=== PATIENT | female | born 1970 | race Caucasian/White ===

== ENCOUNTER 2025-01-22 09:53 | Emergency (ER) | payer MEDICAID, SELFPAY ==
--- NOTE | 2025-01-22 09:45 | RT.EKG_ITS ---
APPROVED REPORT Exam: Resting ECG Reason for Exam: Chest Pain Patient Location: E HR:54 bpm ECG Measurements Heart Rate 54 AXIS NJ 146 P 20 QRSd 89 QRS 75 QT 441 T 50 QTc 417 Conclusion Sinus bradycardia...rate< 60 Consider left ventricular hypertrophy...(S V1+R V5/V6) >3.25mV No Occlusion [facility]
[2025-01-22 09:57] VITALS: BP 123/66; PULSE 63; RESP 20; TEMP 36.4; O2SAT 98
[2025-01-22 10:04] VITALS: BP 123/68; PULSE 68; RESP 20; TEMP 36.4; O2SAT 98
[2025-01-22] MEDS: Albuterol HFA 8 GM 60 PUFF INH IH (10:59)
[2025-01-22] MEDS: predniSONE 20 MG TAB 40 MG PO (10:59)
--- NOTE | 2025-01-22 10:59 | DI.RAD_ITS ---
Exam(s) XR CHEST 2V PA LATERAL EXAM: XR CHEST 2V PA LATERAL CLINICAL HISTORY: shortness of breath TECHNIQUE: 2D digital imaging was performed of the chest. Two images were obtained. PA and lateral views were obtained. COMPARISON: No exams were available for comparison FINDINGS: The nipple shadows are seen bilaterally. MEDIASTINUM: Normal. HEART: Normal. PULMONARY VASCULATURE: Normal. LUNGS: There are no focal consolidating infiltrates present. The lungs are hyperinflated suggesting underlying COPD. PLEURAL SPACE: No pleural effusion or pneumothorax. BONE:Within normal limits for the patient's age. OTHER FINDINGS:Normal. IMPRESSION: No focal consolidating infiltrates. DATA REPOSITORY: RADIATION DOSE DELIVERED:
[2025-01-22 11:08] LABS: COVID-19 PCR Negative (Negative); RSV PCR Negative (Negative)
[2025-01-22 11:23] VITALS: BP 126/82; PULSE 59; RESP 19; TEMP 36.9; O2SAT 95
[2025-01-22 11:46] LABS: Glucose Negative (Negative)
[2025-01-22 12:00] LABS: C & S Indicated? No
--- NOTE | 2025-01-22 15:18 | W.ED.GENAD ---
Discharge Plan Disposition Patient Disposition: Home Condition: Stable Discharge Details Clinical Impression: Bronchitis, Hematuria, Dysuria Primary Care Provider: Adrien Caballero ED Provider: Melissa Powell Home Meds and New Rx's Prescriptions: New prednisone 20 mg tablet 40 mg PO ONCE Qty: 10 0RF doxycycline hyclate 100 mg capsule 100 mg PO BID Qty: 10 0RF Discharge Instructions Instructions: Acute bronchitis, Blood in Urine (Hematuria), Adult ED Additional Instructions: Please follow-up with Dr. Mak, urology regarding the blood in your urine Take the prednisone for the next 5 days to help with your breathing Use the albuterol 2 puffs every 4-6 hours with spacer Take the antibiotics as prescribed Please follow-up with pcp for recheck in 2-3 days And return earlier should you have new or worsening complaints including worsening shortness of breath flank pain, fever, chills Referrals: Adrien Caballero NP [Primary Care Provider, Medicine] Xavi Mak MD [MD CONSULTING PHYSICIAN, Surgery] HPI General Date/Time Provider Initiated Documentation: 01/22/25 10:20. HPI Narrative: This 54-year-old female presents with report of upper respiratory symptoms for the past 2 weeks smokes tobacco on a daily basis diagnosed previously with COPD does use inhalers daily. States she has had increased sputum production states her has also been sick with similar symptoms. She has some pain predominantly with coughing. She denies any hemoptysis. She has any calf pain or swelling or history of PE or deep vein thrombosis. She does also endorse some urinary frequency with oliguira. Related Data Home Medications ?Medication ?Instructions ?Recorded ?Confirmed doxycycline hyclate 100 mg capsule 100 mg PO BID #10 caps 01/22/25 prednisone 20 mg tablet 40 mg (2 x 20 mg) PO ONCE #10 tabs 01/22/25 Previous Rx's ?Medication ?Instructions ?Recorded doxycycline hyclate 100 mg capsule 100 mg PO BID #10 caps 01/22/25 prednisone 20 mg tablet 40 mg (2 x 20 mg) PO ONCE #10 tabs 01/22/25 Allergies Allergy/AdvReac Type Severity Reaction Status Date / Time Penicillins Allergy Intermediate Anaphylaxis Verified 01/22/25 10:51 codeine Allergy Hives Verified 01/22/25 10:51 General Stated Complaint: RespSymp GUERA: 3 Exam Narrative Exam Narrative: Alert and oriented 54-year-old female lungs are clear to auscultation no respiratory distress no abdominal tenderness no visible evidence of trauma cardiac rate rhythm regular, speaking in complete sentences Course Vital Signs Vital signs: Vital Signs Temperature 36.4 C 01/22/25 09:57 Pulse 63 01/22/25 09:57 Respiratory Rate 20 01/22/25 09:57 Blood Pressure 123/66 01/22/25 09:57 Pulse Oximetry 98 01/22/25 09:57 Temperature 36.9 C 01/22/25 11:23 Temperature Source Oral 01/22/25 11:23 Pulse 59 L 01/22/25 11:23 Pulse Rhythm Regular 01/22/25 11:23 Pulse Strength Normal 01/22/25 11:23 Respiratory Rate 19 01/22/25 11:23 Respiratory Effort Non-Labored 01/22/25 11:23 Respiratory Depth Normal 01/22/25 11:23 Respiratory Pattern Normal 01/22/25 11:23 Blood Pressure 126/82 01/22/25 11:23 Blood Pressure Mean 96 01/22/25 11:23 Blood Pressure Position Sitting 01/22/25 11:23 Pulse Oximetry 95 01/22/25 11:23 Oxygen Delivery Method Room Air 01/22/25 11:23 Oxygen Flow Rate 0 01/22/25 11:23 Pain Level 10 01/22/25 09:57 Lab/Test Results Lab/Test Results: Laboratory Tests Range/Units 01/22/25 01/22/25 10:06 11:21 Urine Color (Yellow) Yellow Urine Clarity (Clear) Sl Cloudy Urine pH (5-8) 5.5 Ur Specific [place] (1.005-1.025) 1.025 Urine Protein (Neg-Trace) mg/dL Negative Urine Ketones (Negative) mg/dL Negative Urine Blood (Negative) Small H Urine Nitrite (Negative) Negative Urine Bilirubin (Negative) Negative Urine Urobilinogen (Up to 0.2) mg/dL 0.2 Ur Leukocyte Esterase (Negative) Small H Urine RBC (0-2) HPF 3-5 H Urine WBC (0-5) HPF 5-10 Ur Epithelial Cells (Negative) HPF Many Urine Crystals (Negative) HPF Negative Urine Bacteria (Negative) HPF Few Urine Casts (Negative) LPF Negative Urine Mucus (Negative) Moderate Ur Culture Indicated? No Urine Glucose (Negative) mg/dL Negative COVID-19 Source Nasopharynx SARS-CoV-2 (PCR) (Negative) Negative Influenza Type A (PCR) (Negative) Negative Influenza Type B (PCR) (Negative) Negative RSV (PCR) (Negative) Negative Medical Decision Making 54-year-old female presenting with respiratory complaints and urinary complaints. Results: Chest x-ray per radiology interpretation my review does not show evidence of acute abnormality, urinalysis with red blood cells and no evidence of secondary infection Assessment and plan: Patient has COPD and has been sick for 2 weeks will start on doxycycline prednisone and inhaler with spacer teaching reviewed. Patient will be given a referral to urology given red blood cells and oliguria in the absence of a urinary tract infection. This is microscopic hematuria and not gross hematuria so I do not feel like she requires urgent CT abdomen and pelvis. Dr. Mak's requested referral as her sees this urologist in [place], [place]. Patient's oxygenation is 95% on room air and I think she stable for discharge home at this time. Return precautions reviewed [facility] All Active Problems (Updated 01/22/25 @ 12:17 by STEPHANY Clarke) Dysuria (Acute) Hematuria (Acute) Bronchitis (Acute) Social History Smoking/Tobacco Use Status: Never Smoking risk assessment performed?: Yes Alcohol Intake: never Housing: other Additional Social history: present
== END 2025-01-22 12:39 | disposition home or self-care (01) ==
PROVIDERS: Emergency Provider Physician Assistant
DX: J40 Bronchitis, not specified as acute or chronic (principal); R31.9 Hematuria, unspecified; R30.0 Dysuria
CPT/HCPCS: 51798; 87637; 93005; 99284; 71046; 81003; 81015; 93010; J7512

== ENCOUNTER 2025-04-14 13:23 | Outpatient (REF) | payer MEDICAID, SELFPAY ==
[2025-04-16 12:14] LABS: Complement, Total 53 U/mL (30-75)
== END 2025-04-14 13:24 | disposition home or self-care (01) ==
LOC: LBN 13:23
PROVIDERS: Visit Provider Internal Medicine Pulmonary Disease
DX: J18.9 Pneumonia, unspecified organism (principal)
CPT/HCPCS: 86162

== ENCOUNTER 2025-04-16 02:34 | Outpatient (CLI) | payer MEDICAID, SELFPAY ==
[2025-04-16] MEDS: Levalbuterol HFA 15 GM INH 4 PUFF IH (09:50)
[2025-04-16] MEDS: Inhaler, Assist Device 1 EACH MC (09:50)
--- NOTE | 2025-04-16 12:18 | W.PFT ---
Date of service: 04/16/25 Time of Service: 07:58 Pulmonary Function Test Result Indications: Pulmonary infiltrates Impression 1. Good patient effort was noted. ATS standards for reproducibility were met. 2. Spirometry showed mild obstructive lung disease with an FEV1 of 103% (2.69 L) 3. Following the administration of a bronchodilator there was not a significant response 4. TLC and RV were elevated, consistent with air trapping 5. DLCO was normal at 93% predicted
== END 2025-04-16 02:35 | disposition home or self-care (01) ==
LOC: RT 02:34
PROVIDERS: Visit Provider Internal Medicine Pulmonary Disease
DX: R91.8 Other nonspecific abnormal finding of lung field (principal); J44.9 Chronic obstructive pulmonary disease, unspecified
CPT/HCPCS: 94060; 94726; 94729

== ENCOUNTER 2025-04-28 11:20 | Day surgery (SDC) | payer MEDICAID, SELFPAY ==
[2025-04-28] VITALS (25 sets, daily range): BP systolic 76–122; BP diastolic 40–87; PULSE 62–103; RESP 15–29; TEMP 36.3–36.6; O2SAT 96–99; BMI 20.3
[2025-04-28] MEDS: Lidocaine 2% Pres-Free 2 ML VIAL IH (12:38)
[2025-04-28] MEDS: Albuterol 2.5 MG/3 ML INH SOLN VIAL UPD (12:38)
--- NOTE | 2025-04-28 12:44 | W.PM.OP ---
Operative Note Operative Note PRE-OP DIAGNOSIS: Pulmonary infiltrates POST-OP DIAGNOSIS: same PROCEDURE: Flexible fiberoptic bronchoscopy, diagnostic SURGEON: Jh Castro ANESTHESIA TYPE: General LMA/ETT (Under the direction the anesthesiology team and as per anesthesia record) Refer to Anesthesia Record PATHOLOGY: other (Bronchoalveolar lavage was obtained in the [] and was sent for []. Biopsies taken: []) Procedure Description: The risks (including bleeding, respiratory failure, and pneumothorax), benefits, and alternatives of the procedure were discussed with the patient and consent was obtained.? A Time Out was held and the above information confirmed. Following the induction of general anesthesia, the patient was ventilation through an LMA. The bronchoscope was passed through the LMA. The vocal cords were visualized and lidocaine was topically placed onto the cords. The cords were normal. The scope was then passed into the trachea.?Additional lidocaine was used topically.? A full endobronchial examination was performed.? There were mild opaque secretions in the bronchus intermedius. The RUL, RML, RLL were normal. The ELAINE and LLL were normal. No endobronchial lesions or masses were seen. 100 mL of saline was injected into the medial segment of the RML and 30 mL was aspirated. 70 mL of saline was injected into the inferior segment of the lingula and 30 mL was aspirated. The Patient was taken to the Endoscopy Recovery area in satisfactory condition. Date of Procedure: 04/28/25
--- NOTE | 2025-04-28 12:45 | W.ANESPRE ---
General Info Date of Service Date Performed: 04/28/25 Height: 5 ft 7 in Weight: 58.9 kg Body Mass Index (BMI): 20.3 Surgical Procedure: Operation Date: 04/28/25 13:10 Proposed Procedure Side Surgeon p Bronchoscopy Jh Castro MD Meds Allergies and Home Medications Allergies Allergy/AdvReac Type Severity Reaction Status Date / Time Penicillins Allergy Intermediate Anaphylaxis Verified 04/28/25 12:29 codeine Allergy Hives Verified 04/28/25 12:29 Home Medication ?Medication ?Instructions ?Recorded albuterol sulfate 90 mcg/actuation 2 puff inhalation Q4H 04/10/25 aerosol inhaler atorvastatin 40 mg tablet (Lipitor) 40 mg PO DAILY 04/10/25 fluticasone 250 mcg-salmeterol 50 1 inh inhalation BID 04/10/25 mcg/dose blistr powdr for inhalation (Advair Diskus) omeprazole 40 mg capsule,delayed 40 mg PO DAILY 04/10/25 release Current Visit Medications: Current Medications Generic Name Dose Route Start Last Admin Trade Name Freq PRN Reason Stop Dose Admin Albuterol Sulfate 2.5 mg 04/28/25 06:00 04/28/25 12:38 Albuterol 2.5 Mg/3 Ml Inh Soln Vial UPD 04/28/25 23:59 2.5 mg PREOP CATHLEEN Administration Ringer's Solution 1,000 mls @ 30 mls/hr 04/28/25 06:00 IV 05/25/25 23:59 INFUSION CATHLEEN Lidocaine HCl 2 ml 04/28/25 06:00 04/28/25 12:38 Lidocaine 2% Pres-Free 2 Ml Vial IH 04/28/25 23:59 2 ml PREOP CATHLEEN Administration Sodium Chloride 0 ml 04/28/25 06:00 Normal Saline Flush 10 Ml Syr IV 05/25/25 23:59 PRN PRN Sodium Chloride 0 ml 04/28/25 06:00 Normal Saline 10 Ml Vial IJ 05/25/25 23:59 DIRECTED PRN Sterile Water 0 ml 04/28/25 06:00 Water,Injection,Sterile 10 Ml Vial IJ 05/25/25 23:59 DIRECTED PRN PFSH Active Problems Active Problems: Problem Status Onset Code Recurrent pneumonia Acute J18.9 Pulmonary infiltrates Acute R91.8 Lung nodule Acute R91.1 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 GERD without esophagitis Acute K21.9 Cough Acute R05.9 Hyperlipidemia Acute E78.5 Chronic cough Acute R05.3 Medical History Medical History Pneumonia, unspecified organism Surgical History Surgical History H/O eye surgery Previous section Tobacco Smoking/Tobacco Use Status: Never Alcohol Alcohol Intake: never Substance Use Substance use: Never Substance use type: does not use Vital Signs and Lab Results Vital Signs Most Recent Vital Signs in EMR: Most Recent Vital Signs Pulse Resp BP Pulse Ox 62 16 122/87 98 04/28/25 12:23 12 12:23 04/28/25 12:23 04/28/25 12:23 Imaging and Studies Imaging and Studies Study information below may be from another EMR and interpreted by another provider. Please see original notes in EMR for more complete details. EKG Summary: 01/2025:Conclusion Sinus bradycardia...rate< 60 Consider left ventricular hypertrophy...(S V1+R V5/V6) >3.25mV Pulmonary Function Summary: 03/2025:Pulmonary Function Test Result Indications: Pulmonary infiltrates Impression 1. Good patient effort was noted. ATS standards for reproducibility were met. 2. Spirometry showed mild obstructive lung disease with an FEV1 of 103% (2.69 L) 3. Following the administration of a bronchodilator there was not a significant response 4. TLC and RV were elevated, consistent with air trapping 5. DLCO was normal at 93% predicted Anesthesia Assessment and Plan Anesthesia History Personal History: No History of Anesthesia Complications Family History: No Family History of Anesthesia Complications Exercise Tolerance Exercise Tolerance: Metabolic Equivalents>4 Pertinent Negatives Pertinent Negatives: No Symptoms of GERD Cardiac & Pulmonary Exam Cardiac Exam: Normal S1/S2 Heart Sounds Pulmonary Exam: Clear Bilateral Breath Sounds Implantable Cardiac Device Does patient have a Pacemaker or an ICD?: No Airway Exam Known Difficult Airway: No Mallampati Class: 3 Mouth Opening: Normal (> 3cm) Thyromental Distance: Less than 3 cm Neck Range of Motion: Full ROM Neck Circumference: Normal Teeth Condition: Normal Dentition ASA Classification ASA Score: ASA 2 Emergency Case?: No NPO Status NPO Status: NPO Clears >2 hours, Solids >8 hours Anesthesia Plan Resuscitation Status: Full Code Anesthesia Technique: General Anesthesia Airway Planned: LMA Monitors Used: Standard Monitors
[2025-04-28] MEDS: Lactated Ringers 1,000 ML 30 ML IV (12:53)
--- NOTE | 2025-04-28 13:29 | PAPNONF_PTH ---
PATIENT: Mercy Shepard LOC: [facility] U#:[id number] AGE/SX: 54/F ROOM: RE04/28/[address]: Jh Castro : 1970 BED: DIS: 04/28/2025 SPEC #: [id number] RECD: 04/28/25 18:13 STATUS: MAYDA RERony #: [id number] IVAN: 04/28/25 13:[address]: Jh Castro DEPT: [facility] Cytology RECD BY: Melissa Brar ENTERED: 04/28/25 18:13 SP TYPE: JAMEEL ANAYA DR: Adrien Caballero, KALEE Tissues: 1 - BODY FLUID CYTO(NOT S/U/N/EM)[facility] 2 - BODY FLUID CYTO(NOT S/U/N/EM)[facility] Procedures: BODY FLUID CYTO(NOT SPU/UR/NIP/ENDOM)[facility] Comments: [id number] (SENT FRESH) (REFRIGERATED)
[2025-04-28] MEDS: ePHEDrine 25 MG/5 ML Syringe IVP ×2 (13:49→14:00)
[2025-04-28] MEDS: Lidocaine 1% Pres-Free 5 ML VIAL (13:51)
--- NOTE | 2025-04-28 15:21 | W.ANESPOSTOP ---
Postoperative Evaluation Date, Time and Location Date Performed: 04/28/25 Time Performed: 15:22 Patient Location: Day Surgery Unit Vital Signs Most Recent Imported Vital Signs: Most Recent Vital Signs Temp Pulse Resp BP Pulse Ox 36.6 C 81 17 104/66 96 04/28/25 15:00 04/28/25 15:00 04/28/25 15:00 04/28/25 15:00 04/28/25 15:00 Pain Score Most Recent Pain Score: Most Recent Pain Score Pain Level 0 04/28/25 15:00 Assessment Mental Status: Awake (Alert & Oriented to Patient Baseline) Airway and Respiratory Function: Patent airway with normal (patient baseline) respiratory exam Cardiovascular Function: Hemodynamically Stable Hydration Status: Adequately Hydrated Nausea & Vomiting: No Nausea or Vomiting Pain: Pt. Denies Any Pain Peripheral Nerve Block: Patient did not receive a nerve block
[2025-04-28 22:27] LABS: Lymphocytes Fluid Relative 16 % ((See Note)); Mono/Macrophage Fluid Relative 82 % ((See Note)); Neutrophils Fluid Relative 2 % ((See Note))
[2025-04-28 22:31] LABS: Lymphocytes Fluid Relative 12 % ((See Note)); Mono/Macrophage Fluid Relative 80 % ((See Note)); Neutrophils Fluid Relative 4 % ((See Note)); Other Cells Fluid Relative 4 % ((See Note))
[2025-04-29 23:41] LABS: Aspergillus Ag, BAL 0.598 index (<0.5)
[2025-04-29 23:41] LABS: Aspergillus Ag, BAL 0.595 index (<0.5)
== END 2025-04-28 15:33 | disposition home or self-care (01) ==
LOC: SUR 11:21
PROVIDERS: Visit Provider Internal Medicine Pulmonary Disease
PROC: 0BJ08ZZ Inspection of Tracheobronchial Tree, Via Natural or Artificial Opening Endoscopic (ICD-10-PCS; CPT 31622; principal; 2025-04-28 13:00)
DX: R91.8 Other nonspecific abnormal finding of lung field (principal); J84.89 Other specified interstitial pulmonary diseases
CPT/HCPCS: 31624; 80162; 87070; 87102; 87116; 87205; 87206; 87305; 88104; 94640; J1100; J2003; J2405; J2704; J7613